=== PATIENT | female | born 2000 | race Hispanic/Latino ===

== ENCOUNTER 2022-09-21 23:20 | Emergency (ER) | payer SELFPAY ==
[2022-09-22] MEDS ORDERED: Ibuprofen 200 MG TAB ONE (00:13)
== END 2022-09-22 00:34 | disposition home or self-care (01) ==
LOC: CSHERS 23:20
DX: S62.636A Displaced fracture of distal phalanx of right little finger, initial encounter for closed fracture (principal); W17.89XA Other fall from one level to another, initial encounter